=== PATIENT | female | born 1970 | race Caucasian/White ===

== ENCOUNTER 2025-04-04 20:44 | Emergency (ER) | payer OTHER, SELFPAY ==
[2025-04-04 20:53] VITALS: BP 203/117
[2025-04-04 21:21] LABS: Hematocrit 42.2 % (37.0-47.0); Hemoglobin 14.8 g/dL (12.0-16.0); Mean Corp Hgb Conc. 35.1 g/dL (33.0-37.0); Mean Corpuscular Volume 85.6 fL (81.0-99.0); Nucleated Red Blood Cells % 0 %; Platelet Count 236 10^3/uL (130-400); Red Cell Dist. Width 12.2 % (11.5-14.5)
[2025-04-04 21:31] LABS: APTT 49.5 Sec (23.4-35.0)
[2025-04-04 21:42] LABS: ALT (SGPT) 25 U/L (0-35); AST (SGOT) 26 U/L (14-36); Albumin 4.7 g/dl (3.5-5.0); Alkaline Phosphatase 114 U/L (38-126); Blood Urea Nitrogen 13 mg/dl (7-17); Calcium 9.8 mg/dl (8.4-10.2); Carbon Dioxide 22 mmol/L (22-30); Chloride 101 mmol/L (98-107); Glucose 151 mg/dl (70-99); Potassium 3.7 mmol/L (3.5-5.1); Sodium 134 mmol/L (135-145); Total Protein 8.0 g/dl (6.3-8.2); eGFR > 60.00
[2025-04-04 21:55] VITALS: BP 169/84
[2025-04-04 21:55] LABS: Troponin I < 0.012 ng/ml
[2025-04-04 21:57] LABS: INR 2.90; PT 29.9 Sec (11.4-14.6)
[2025-04-04 22:00] VITALS: BP 157/81
[2025-04-04 23:00] VITALS: BP 149/75
[2025-04-05 00:02] VITALS: BP 138/75
[2025-04-05] MEDS: TYLENOL 650 MG PO (00:09)
[2025-04-05 01:00] VITALS: BP 131/72
--- NOTE | 2025-04-05 02:42 | ED.GENMED ---
History of Present Illness
General
Chief Complaint: Breathing Problem
Source: patient
Exam Limitations: none
Time Seen by Provider: 04/04/25 23:26
Nursing documentation reviewed up to this point in time: agreed with
History of Present Illness
History of Present Illness:
Note:
CHIEF COMPLAINT(S)
Chest pain, shortness of breath, back pain, tingling in arm, and nausea.
HISTORY OF PRESENT ILLNESS
The patient is a 54-year-old female with a history of aortic coarctation repair in 2001 and a bicuspid aortic valve, presenting with chest pain, shortness of breath, and back pain starting around 4:30 PM. She experienced tingling in her arm, nausea,
and bowel movements. She has been under significant stress which may have precipitated these symptoms. Her blood pressure at home was measured at 160/102 with a pulse of 96. The chest pain is described as radiating and similar to previous kidney
stone episodes and is located beneath the sternum. Currently, she feels her breathing has improved, but the pain persists. The patient denies smoking, alcohol, and drug use. She reports carrying significant caregiving responsibilities at home,
contributing to her stress levels.
CHRONIC MEDICAL CONDITIONS SIGNIFICANTLY AFFECTING CARE
History of aortic coarctation repair and bicuspid aortic valve.
SOCIAL DETERMINANTS AFFECTING HEALTH
The patient is experiencing significant stress due to her caregiving responsibilities for her 83-year-old [id number], a with chronic back pain, and a daughter struggling in school.
REVIEW OF SYSTEMS
- Cardiovascular: Chest pain and history of aortic issues.
- Respiratory: Shortness of breath, which has improved.
- Neurological: Tingling in the arm.
- Gastrointestinal: Nausea and bowel movements.
PHYSICAL EXAM
General: Alert, no acute distress.
Skin: Warm, dry.
Head: Normocephalic, atraumatic.
Neck: Supple, trachea midline.
Eye Ears, nose, mouth and throat: Oral mucosa moist.
Cardiovascular: Normal peripheral perfusion, No edema.
Respiratory: Respirations are non-labored.
Gastrointestinal : Abdomen nondistended.
Back: Normal range of motion, Normal alignment.
Musculoskeletal: Normal ROM, normal strength.
Neurological: Alert and oriented to person, place, time, and situation, No focal neurological deficit observed.
Psychiatric: Cooperative, appropriate mood & affect.
PLAN
A computed tomography scan of the chest will be performed to evaluate the aortic condition and exclude any potential aortic dissection or other acute issues.
DIFFERENTIAL DIAGNOSIS
The Differential Diagnosis includes, in no particular order and is not limited to:
1. Aortic dissection-not seen on CT
2. Angina or myocardial ischemia
3. Musculoskeletal pain
4. Gastroesophageal reflux disease
5. Pulmonary embolism�not seen on CT
6. Costochondritis
7. Shingles (Herpes Zoster)�no evidence on the skin
8. Anxiety-related symptoms
9. Peptic ulcer disease
10. Pneumonia
Disposition:
SUMMARY OF ENCOUNTER
54-year-old female presented with chest pain and shortness of breath after experiencing a stressful situation at home. The patient has a history of anxiety and believed this episode might be an anxiety attack. A CT angiography of the chest was
performed, which showed no acute processes. The possibility of pneumonitis was considered, but the patient denies any symptoms. Troponin levels returned negative, ruling out significant myocardial injury. The patients labs are unremarkable, and she
currently reports being asymptomatic.
DISPOSITION
Discharge in improved condition.
ASSESSMENT
The patient presented with chest pain and shortness of breath, likely attributed to anxiety given her history and recent events. No acute cardiac or pulmonary processes identified on imaging or lab results.
PLAN
The patient is advised to follow up with her calculating machine mechanic, Dr. Bruno, whom she saw recently.
INDEPENDENT REVIEW OF LABS AND INTERPRETATION OF TESTS
- My independent review of troponin indicates a negative result.
- My independent review of CT angiography of the chest indicates no acute processes.
FOLLOW-UP INSTRUCTIONS
The patient will follow up with Dr. Bruno, her calculating machine mechanic, as planned.
MEDICAL DECISION MAKING
- Complexity of Data Reviewed: Chronic conditions affecting care [History of aortic coarctation repair and bicuspid aortic valve]. Differential diagnosis considered included anxiety-related symptoms, angina or myocardial ischemia, aortic dissection,
and pulmonary embolism among others.
- Data:
Category 1
- My independent interpretation of CT angiography of the chest indicates no acute processes.
- Risk:
Consideration of Admission/Observation: Escalation of care including admission/observation was considered given the complexity and risk of the patients presenting complaint and exam findings. However, ultimately I feel the patient is safe for
outpatient management with close follow-up. Reasoning: Work-up reassuring, does not reveal any acute life/organ threatening processes, patients symptoms well controlled upon reevaluation, reexamination is reassuring, vitals are stable, patient
agreeable with discharge, reliable for follow-up.
DIAGNOSIS
- Anxiety disorder (ICD-10: F41.9)
- Chest pain, unspecific (ICD-10: R07.9)
- History of aortic coarctation repair (ICD-10: Q25.1)
- Bicuspid aortic valve (ICD-10: Q23.1)
Phy Exam
Physical Exam
Physical Exam:
.
Scores
Heart Failure Risk
Heart Failure Risk Score: Yes
History of Stroke or TIA: No
History of intubation for respiratory distress: No
Heart rate on ED arrival >/= 110: No
SaO2 <90% on arrival on room air: No
HR >/=110 during 3min walk test (or too ill to perform test): No
ECG has acute ischemic changes: No
Urea >/=12mmol/L (BUN 33.6mg/dL): No
Serum CO2>/=35mmol/L: No
Troponin I or T elevated to LA Level (0.4mg/dL): No
NT-proBNP >/=5,000ng/L (5,000pg/ml): No
HF Risk Score: 0
Admission Status: LOW RISK 2.8% Consider discharge to home with f/u visit to PCP/[facility]
Course
Orders/Labs/Results
Orders:
Orders
04/04/25 20:45
Electrocardiogram (*1) Urgent
Reason for Study: Chest Pain
EKG- Treatment ONCE
04/04/25 21:06
Complete Blood Count/With Diff Urgent
Comprehensive Metabolic Panel Urgent
NT-proBNP Urgent
PTT Urgent
Prothrombin Time Urgent
Comment: ADD ON
Troponin I Urgent
04/04/25 21:48
Add On- LAB Urgent
Comments:: on coumadin
Tests Added?: PT/INR
04/04/25 23:32
CT Chest PE Study Urgent
Comment:
Reason For Exam: cp/sob, hx of renal clot, aorta SX
04/05/25 00:05
Acetaminophen [Tylenol] 650 mg PO NOW STA
Abnormal Lab Results
04/04/25
21:06
Absolute Neuts (auto) 7.2 H 10^3/uL
(1.4-6.5)
Absolute Lymphs (auto) 1.1 L 10^3/uL
(1.2-3.4)
Neutrophils % 80.3 H %
(42.2-75.2)
Lymphocytes % 12.6 L %
(20.5-51.1)
PT 29.9 H Sec
(11.4-14.6)
APTT 49.5 H Sec
(23.4-35.0)
Sodium 134 L mmol/L
(135-145)
Glucose 151 H mg/dl
(70-99)
04/04/25 21:06
04/04/25 21:06
Vital Signs
Initial and Last Documented VS:
Initial Vital Signs
Temp Pulse Resp BP Pulse Ox
98.1 F 92 20 203/117 99
04/04/25 20:53 04/04/25 20:53 04/04/25 20:53 04/04/25 20:53 04/04/25 20:53
Last Documented Vital Signs
Temp Pulse Resp BP Pulse Ox
98.1 F 75 16 131/72 95
04/04/25 20:53 04/05/25 01:00 04/05/25 01:00 04/05/25 01:00 04/05/25 02:43
*Radiology
Radiology exam reviewed: radiology read reviewed
*Pulse Oximetry
SaO2: 95
Oxygen Mode of Delivery: Room air
Patient hypoxic: no
*Critical Care Note
Total Time (30-74mins, 75-104mins- exclusive of procedures): Not Applicable
Update Note
Update Note:
NAME: SCOTT SHETH
DATE OF EXAM: 04/05/2025
Patient No: [id number]
Physician: BENNIE
Date of : 1970
Past Medical History (entered by Technologist):
Reason For Exam (entered by Technologist):
Other Notes (entered by Technologist): sob,
past h/o renal infarct
Additional Information (per [facility] Radiologist): Short of breath
CTA chest
IMPRESSION:
No evidence of PE or acute aortic pathology
Good quality exam, very minimal motion unsharpness
Top normal sized heart
Upper descending aortic bypass is patent, no mediastinal hemorrhage or pericardial effusion
No consolidative pneumonia or CHF
Minimal dependent ground glass atelectasis right lung base likely atelectasis series 401 images 64-73, clinically exclude signs of possible mild atypical or aspiration pneumonitis
Minimal linear fibrosis or subsegmental atelectasis inferior lingula series 401 images 40-50
No acute process limited upper abdomen, cholecystectomy
Case finalized on 04/05/25 02:34 EDT
Gavin Logan M.D.
This report has been electronically signed and verified by the Radiologist whose name is printed above.
ED Attending Note
-
Portions of this chart may have been created with voice recognition software.� Occasional wrong word or��sound alike� substitutions may have occurred due to the inherent limitations of voice recognition software.
Discharge Plan
Departure
Patient Disposition: Home (Routine Discharge)
Date of Disposition: 04/05/25
Time of Disposition: 02:45
Patient with high blood pressure during this ER visit?: Yes
Discharge Problem:
Chest pain, Anxiety
Instructions: Chest Pain (DC), Shortness of Breath (Dyspnea) (DC), Chest Pain NON-[facility]P [facility] Follow Up, BLOOD PRESSURE
Prescriptions:
No Action
multivitamin Tablet
1 tab PO DAILY
metoprolol succinate 50 mg Tablet Extended Release 24 Hr
50 mg PO DAILY
warfarin [Coumadin] 7.5 mg Tablet
7.5 mg PO MOFR
amlodipine 2.5 mg Tablet
2.5 mg PO DAILY
diphenhydramine HCl [Benadryl] 25 mg Capsule
25 mg PO HS
warfarin [Coumadin] 5 mg Tablet
5 mg PO .[id number]
aspirin 81 mg Tablet
81 mg PO DAILY
docusate sodium 100 mg Tablet
100 mg PO DAILY
loratadine [Claritin] 10 mg Tablet
10 mg PO DAILY
losartan-hydrochlorothiazide 100-12.5 mg Tablet
1 tab PO DAILY
Adbry 300 mg/2 mL Auto-Injector
300 mg SC Q14D
Referrals:
Sanjuana Reeves DO [Family Provider, Family Practice]
Jason Bruno DO [Affiliate, Cardiology] - Call in 1-3 days for appt
Activity Restrictions/Additional Instructions:
Thank You for choosing [facility].
It was a pleasure meeting you and taking part in your care. We hope for your continued healing and wellness.
Please read discharge instructions in their entirety. However, they are for general education and may not describe your exact diagnosis at discharge. Information on your ER visit and medical conditions were discussed with you along with appropriate
follow up information...
If indicated, please take your medications as instructed and indicated on discharge paperwork.
Please schedule a follow up appointment as directed. Call to schedule an appointment
Please return to the emergency department with ANY change in, persisting, or worsening of symptoms. If any of your symptoms do not improve, or persist, or become more severe within 6-12 hours, please return to the emergency department for further
care.
Please return to the emergency department if you develop a headache, neck pain/stiffness, fever greater than 100.4F, chest pain, shortness of breath, persistent nausea, vomiting, slurred speech, difficulty walking, numbness/tingling, weakness, signs
of infection or any other symptoms that are worrisome to you.
If you have any questions or concerns please do not hesitate to call the Hospital at .
Interventions
Interventions:
*General Assessment Last Done: 04/04/25 20:53
*Neglect/Abuse Screening Last Done: 04/04/25 22:07
*ED COVID-19 Vaccine History Last Done: 04/04/25 22:07
*ED Influenza Vaccine History Last Done: 04/04/25 22:07
[facility] Risk Assessment Tool Last Done: 04/04/25 22:07
*Risk Screen - Suicide (C-SSRS) Last Done: 04/04/25 22:07
ED- Cardiac Assessment Last Done: 04/04/25 22:07
ED- Pulmonary Assessment Last Done: 04/04/25 22:07
Discharge Date and Time
Print Language: NIGERIEN
[2025-04-05 03:09] VITALS: BP 125/70
== END 2025-04-05 03:36 | disposition home or self-care (01) ==
LOC: EMR 20:44
PROVIDERS: Emergency Medicine; EMERGENCY PHYSICIAN Student in an Organized Health Care Education/Training Program; FAMILY PHYSICIAN Family Medicine
DX: R07.9 Chest pain, unspecified (principal); F41.9 Anxiety disorder, unspecified; Q23.81 Bicuspid aortic valve; Z63.6 Dependent relative needing care at home; Z63.79 Other stressful life events affecting family and household; Z87.74 Personal history of (corrected) congenital malformations of heart and circulatory system
CPT/HCPCS: 99284; 71275; 80053; 83880; 84484; 85025; 85610; 85730; 93005; Q9967